=== PATIENT | female | born 1975 | race Caucasian/White ===

== ENCOUNTER 2018-04-25 19:49 | Emergency (ER) | payer MEDICAID ==
[~2018-04-25] VITALS: Ht 172.7 cm; Wt 79.5 kg
[~2018-04-25 19:49] MED LIST: CARB15DR91 EACH EAR; NEOM10SO7 RIGHT EAR
--- NOTE | 2018-04-25 20:01 | NUR ---
ice applied in triage.
[2018-04-25 21:48] VITALS: BP 119/65
== END 2018-04-25 21:53 | disposition home or self-care (01) ==
LOC: ER 19:49
DX: S60.221A Contusion of right hand, initial encounter (principal); Z56.0 Unemployment, unspecified; Z88.0 Allergy status to penicillin; W22.03XA Walked into furniture, initial encounter; Y93.89 Activity, other specified; Y92.89 Other specified places as the place of occurrence of the external cause; Y99.8 Other external cause status
CPT/HCPCS: 73130; 99283

== ENCOUNTER 2018-06-20 05:26 | Day surgery (SDC) | payer MEDICAID ==
[2018-06-19 10:02] LABS: BASOPHILS # (AUTO) 0.1 X10'3 (0-0.2); BASOPHILS % (AUTO) 0.8 % (0-1); EOSINOPHILS # (AUTO) 0.1 X10'3 (0-0.9); EOSINOPHILS % (AUTO) 1.2 % (0-6); LYMPHOCYTES % (AUTO) 28.8 % (21-51); MEAN CORPUSCULAR HEMOGLOBIN 29.9 PG (27.0-31.0); MEAN CORPUSCULAR HGB CONC 33.4 g/dL (33.0-36.5); MEAN CORPUSCULAR VOLUME 89.8 FL (78-98); MEAN PLATELET VOLUME 7.5 FL (7.4-10.4); MONOCYTES % (AUTO) 9.7 % (2-12); NEUTROPHILS # (AUTO) 6.2 X10'3 (1.8-7.7); NEUTROPHILS % (AUTO) 59.5 % (42-75); PRE OP HEMATOCRIT 43.1 % (35.0-45.0); PRE OP HEMOGLOBIN 14.4 g/dL (12.0-16.0); PRE OP PLATELET COUNT 341 X10'3 (140-440); RED CELL DISTRIBUTION WIDTH 14.7 % (11.5-14.5)
[2018-06-19 10:19] LABS: ALBUMIN 3.4 G/DL (3.4-5.0); ALKALINE PHOSPHATASE 57 IU/L (46-116); BLOOD UREA NITROGEN 14 MG/DL (7-18); BUN/CREATININE RATIO 20.9 (6.6-38.0); CALCIUM 8.7 MG/DL (8.5-10.1); CHLORIDE 104 MMOL/L (99-107); CREATININE 0.67 MG/DL (0.40-0.90); PRE OP ALT 25 U/L (30-65); PRE OP ANION GAP 8 (8-16); PRE OP AST 18 U/L (10-37); PRE OP BILIRUB, TOTAL 0.2 MG/DL (0.0-1.0); PRE OP GLUCOSE 93 MG/DL (70-104); PRE OP POTASSIUM 3.9 MMOL/L (3.4-5.1); PRE OP SODIUM 141 MMOL/L (135-145); TOTAL CARBON DIOXIDE 29.3 MMOL/L (24-32); TOTAL PROTEIN 6.7 G/DL (6.4-8.2); eGFR > 90 ML/MIN
[~2018-06-20] VITALS: Ht 172.7 cm; Wt 82.6 kg
[2018-06-20] VITALS (12 sets, daily range): BP systolic 115–137; BP diastolic 72–86
[~2018-06-20 05:26] MED LIST changes: +BACL20TA PO; -CARB15DR91 EACH EAR; +MIRT15TA PO; -NEOM10SO7 RIGHT EAR
[2018-06-20] MEDS ORDERED: CLINDAmcin 900mg/NS 50ml IVPB 50 ML IV ONE (05:30)
[2018-06-20] MEDS ORDERED: famotidine 20mg tablet PO ONE (05:30)
[2018-06-20] MEDS ORDERED: albuterol 2.5 MG/3 ML nebule NEB ONE (05:30)
[2018-06-20] MEDS ORDERED: LIDOcaine 1% (10mg/ml) 2ml vial ONE (06:03)
[2018-06-20] MEDS ORDERED: BUPIVAcaine/PF 2.5mg/ml (0.25%) 10ml vial ONE (06:41)
[2018-06-20] MEDS ORDERED: LIDOcaine 1% 30ml preserv. free vial ONE (06:41)
[2018-06-20] MEDS ORDERED: sevoflurane 250ml liquid IH ONE (07:21)
[2018-06-20] MEDS ORDERED: fentaNYL/PF 50MCG/1 ML 2ML syringe ONE (07:28)
[2018-06-20] MEDS ORDERED: midazolam 2 mg/2 ml injection ONE (07:28)
[2018-06-20] MEDS ORDERED: ondansetron/PF 4mg/2ml inj ONE (07:48)
[2018-06-20] MEDS ORDERED: dexamethasone sod phosphate 4mg/ml inj. ONE (07:48)
[2018-06-20] MEDS ORDERED: propofol inj 20 ML IV ONE (07:48)
[2018-06-20] MEDS ORDERED: LIDOcaine 2% (20mg/ml) 5ml vial ONE (07:48)
[2018-06-20] MEDS ORDERED: meperidine/PF 50mg/ml syringe ONE (08:02)
--- NOTE | 2018-06-20 08:06 | NUR ---
Received from OR via , accompanied by Anesthesiologist and report given by Anesthesiolgist. PATIENT A&O X4, LUNG SOUNDS CLEAR, VSS CHARTED, LUNG SOUNDS CLEAR, DRESSING TO RIGHT UPPER ARM, DRESSING CDI, 20 GAUGE PIV TO LEFT FA INFUSING IVF ORDER, PATIENT RESTING IN BED, WILL CONTINUE TO MONITOR.
[2018-06-20] MEDS ORDERED: HYDROcodone/acetaminophen 5mg/325mg tablet PO ONE (08:30)
--- NOTE | 2018-06-20 09:46 | NUR ---
PATIENT D/D CRITERIA MET. PATIENT DC INSTRUCTIONS GIVEN, PATIENT VERBALIZED UNDERSTANDING. PIV DC'D CATH TIP INTACT, PATIENT SCD'D DC'D. DRESSING TO RIGHT UPPER FA IN PLACE CDI, PATIENT TO PERSONAL VEHICLE WITH ALL PERSONAL BELONGINGS ACCOMPANIED BY STAFF AND FAMILY.
== END 2018-06-20 09:46 | disposition home or self-care (01) ==
LOC: PAS 05:26
PROVIDERS: ATTEND Surgery
DX: D17.21 Benign lipomatous neoplasm of skin and subcutaneous tissue of right arm (principal)
CPT/HCPCS: 11406; 36415; 71046; 80053; 82948; 85025; 93005; J1100; J2001; J2175; J2250; J2405; J2704; J3010; J3490; J7120; A7000

== ENCOUNTER 2019-02-02 18:07 | Emergency (ER) | payer MEDICAID ==
[~2019-02-02] VITALS: Ht 172.7 cm; Wt 86.4 kg
[2019-02-02] MEDS ORDERED: normal saline 1000ML IV soln IVB ONE (19:55)
[2019-02-02 20:22] LABS: ALANINE AMINOTRANSFERASE 22 U/L (12-78); ALBUMIN 3.4 G/DL (3.4-5.0); ALBUMIN/GLOBULIN RATIO 0.9 (1.1-1.5); ALKALINE PHOSPHATASE 67 IU/L (46-116); ANION GAP 8 (8-16); ASPARTATE AMINO TRANSFERASE 21 U/L (10-37); BILIRUBIN,TOTAL 0.3 MG/DL (0.1-1.0); BLOOD UREA NITROGEN 14 MG/DL (7-18); BUN/CREATININE RATIO 16.9 (6.6-38.0); CALCIUM 8.7 MG/DL (8.5-10.1); CHLORIDE 105 MMOL/L (99-107); CREATININE 0.83 MG/DL (0.40-0.90); GLUCOSE 100 MG/DL (70-104); POTASSIUM 3.5 MMOL/L (3.5-5.1); SODIUM 141 MMOL/L (135-145); TOTAL CARBON DIOXIDE 28.1 MMOL/L (24-32); TOTAL PROTEIN 7.4 G/DL (6.4-8.2); eGFR 75 ML/MIN
[2019-02-02 20:35] LABS: BASOPHILS % (AUTO) 0.4 % (0-1); EOSINOPHILS # (AUTO) 0.2 X10'3 (0-0.9); EOSINOPHILS % (AUTO) 1.7 % (0-6); HEMATOCRIT 41.3 % (35.0-45.0); LYMPHOCYTES # (AUTO) 3.6 X10'3 (1.1-4.8); LYMPHOCYTES % (AUTO) 30.1 % (21-51); MEAN CORPUSCULAR VOLUME 91.4 FL (78-98); MEAN PLATELET VOLUME 7.7 FL (7.4-10.4); MONOCYTES # (AUTO) 1.2 X10'3 (0-0.9); MONOCYTES % (AUTO) 9.6 % (2-12); NEUTROPHILS # (AUTO) 7.1 X10'3 (1.8-7.7); NEUTROPHILS % (AUTO) 58.2 % (42-75); PLATELET COUNT 341 X10'3 (140-440); RED BLOOD COUNT 4.52 X10'6 (4.20-5.60); WHITE BLOOD COUNT 12.1 X10'3 (4.5-11.0)
[2019-02-02 22:18] LABS: CLARITY,URINE SLIGHTLY CLOUDY (Clear); COLOR,URINE YELLOW (Yellow); GLUCOSE, URINE NEGATIVE (Neg); KETONES,URINE TRACE mg/dl (Neg); LEUKOCYTE ESTERASE ,URINE NEGATIVE (Neg); NITRITES, URINE NEGATIVE (Neg); OCCULT BLOOD,URINE NEGATIVE (Neg); PROTEIN,URINE NEGATIVE (Neg); UROBILINOGEN,URINE 0.2 E.U/dL (0.2-1.0)
[2019-02-02 22:22] LABS: URINE AMPHETAMINE SCREEN NEGATIVE (Neg); URINE BARBITUATE SCREEN NEGATIVE (Neg); URINE BENZODIAZEPINES SCREEN NEGATIVE (Neg); URINE CANNABINOID SCREEN POSITIVE (Neg); URINE COCAINE SCREEN NEGATIVE (Neg); URINE METHADONE SCREEN NEGATIVE (Neg); URINE OPIATE SCREEN NEGATIVE (Neg); URINE PHENCYCLIDINE SCREEN NEGATIVE (Neg)
--- NOTE | 2019-02-02 22:22 | NUR ---
relieving RN for break, Dr Holcomb at bedside to talk with pt
[2019-02-02 22:23] VITALS: BP 144/89
[2019-02-02 22:41] LABS: UA COLLECTION TYPE STRAIGHT CATH
[2019-02-02 22:43] LABS: AMORPHOUS PHOSPHATES 2+; BACTERIA,URINE NONE SEEN /HPF (Neg); MUCUS STRANDS FEW /LPF (Neg); RBC,URINE NONE SEEN /HPF (0-2); SQUAMOUS EPITHELIAL CELL,UR FEW /LPF (FEW); WBC,URINE 0-4 /HPF (0-4)
== END 2019-02-02 22:27 | disposition home or self-care (01) ==
LOC: ER 18:08
DX: G40.909 Epilepsy, unspecified, not intractable, without status epilepticus (principal); J45.909 Unspecified asthma, uncomplicated; F17.200 Nicotine dependence, unspecified, uncomplicated; G89.29 Other chronic pain; Z72.89 Other problems related to lifestyle; Z88.0 Allergy status to penicillin; Z56.0 Unemployment, unspecified
CPT/HCPCS: 36415; 70450; 71045; 80053; 80305; 81001; 85025; 93005; 99284

== ENCOUNTER 2019-05-24 09:51 | Outpatient (CLI) | payer MEDICAID | END 2019-05-24 23:59 | disposition home or self-care (01) | LOC: RAD 09:51 | PROVIDERS: ATTEND Psychiatry & Neurology Neurology | DX: R68.89 Other general symptoms and signs (principal) | CPT/HCPCS: 95816 ==

== ENCOUNTER 2020-01-31 03:42 | Emergency (ER) | payer MEDICAID ==
[~2020-01-31] VITALS: Ht 172.7 cm; Wt 95.0 kg
[2020-01-31] MEDS ORDERED: clindamycin 150mg capsule PO ONE (04:15)
[2020-01-31 04:24] LABS: URINE HCG NEGATIVE (NEG)
[2020-01-31] MEDS ORDERED: CLIN-97 PO (04:36)
[2020-01-31 04:43] VITALS: BP 175/78
== END 2020-01-31 04:45 | disposition home or self-care (01) ==
LOC: ER 03:43
DX: L03.116 Cellulitis of left lower limb (principal); J45.909 Unspecified asthma, uncomplicated; G89.29 Other chronic pain; Z88.0 Allergy status to penicillin; Z79.2 Long term (current) use of antibiotics; Z79.899 Other long term (current) drug therapy; Z86.69 Personal history of other diseases of the nervous system and sense organs; Z72.89 Other problems related to lifestyle; Z56.0 Unemployment, unspecified
CPT/HCPCS: 81025; 99283